=== PATIENT | female | born 1960 | race Caucasian/White ===

== ENCOUNTER → 2017-03-03 | Outpatient (CLI) | payer BC ==
[~2017-03-03] MED LIST: ATOR10TA PO; IOHEXOL 300 MG/ML 100ML VIAL. IV ONE; LORA0.5T96 PO; OLME20TA19 PO; PARO10TA57 PO; PRED1TAB3 PO; SOY1TABL2 PO
--- NOTE | 2017-03-03 12:51 | KCIC ---
CT ABDOMEN PELVIS WO/W dated 03/03/2017 11:00 AM Indication: Bladder cancer Comparison: None available. Technique: Pre and postcontrast imaging was performed of the[abdomen and pelvis as per the urogram protocol], multiplanar reconstruction images submitted. One or more of the following individualized dose reduction techniques were utilized for this examination: 1. Automated exposure control 2. Adjustment of the mA and/or kV according to patient size 3. Use of iterative reconstruction technique Contrast: 95 cc Omnipaque 300 Findings: There is some motion degradation. There are no renal or ureteral calculi, no hydronephrosis. Both kidneys enhance. The ureters are not dilated. No filling defect is identified of the opacified ureters or renal collecting systems. The entirety of the urinary bladder is not opacified with contrast on delayed images, no filling defects identified of the posterior one half of the urinary bladder. No significant lymphadenopathy is identified. There is no significant abnormality of the limited visualized lung bases. There is no adrenal nodularity. No focal abnormality is identified of the liver, spleen, pancreas, gallbladder, adrenal glands. Accurate evaluation of the bowel is limited without oral contrast. There is no significant bowel dilatation, free air, free fluid. Gallbladder is present without obvious intraluminal abnormality by CT. There is degenerative disc disease and spondylosis at L5-S1, mild narrowing of the right neural foramen at this level. IMPRESSION: 1. There is no significant lymphadenopathy, no filling defect identified of the renal collecting systems or ureters. Accurate evaluation for bladder mass is limited by CT, no obvious mass of the posterior one half of the urinary bladder. Electronically signed by: Adán Hauser MD (03/03/2017 12:47 PM)
== END | disposition home or self-care (01) ==
LOC: KCIC CT 10:17
PROVIDERS: ATTEND Urology
DX: C67.9 Malignant neoplasm of bladder, unspecified (principal)
CPT/HCPCS: 74178; Q9967

== ENCOUNTER → 2017-11-24 | Outpatient (CLI) | payer BC | END | disposition home or self-care (01) | LOC: KCIC MAMMO 12:05 | DX: Z12.31 Encounter for screening mammogram for malignant neoplasm of breast (principal) | CPT/HCPCS: 77067 ==

== ENCOUNTER → 2018-11-27 | Outpatient (CLI) | payer BC ==
[~2018-11-27] MED LIST changes: -IOHEXOL 300 MG/ML 100ML VIAL. IV ONE; +OLME20TA17 PO; -OLME20TA19 PO
--- NOTE | 2018-11-27 17:54 | KCIC ---
Bilateral digital screening mammograms with 3-D tomosynthesis: Reason for examination: Routine screening. Comparison is made to previous studies dated 11/24/2017 and 01/01/2015. Bilateral mammograms in CC and oblique projections were obtained with 2-D imaging and 3-D tomosynthesis imaging on a [employer] Inspiration unit and reviewed on the workstation. Interpretation was made with the benefit of CAD. The skin and nipples show no abnormalities. No abnormal axillary lymph nodes are seen. The breast parenchyma is predominantly fatty. (Breast density: Category A.) There are no dominant masses, suspicious calcifications or architectural distortion. Impression: No evidence of malignancy. Recommend routine screening. BI-RAD Category 1: Negative. "Our facility is accredited by the [employer] Mammography Program." This patient's information has been entered into a reminder system for the patient to be notified with the results of her examination and a target date for the next mammogram. Electronically signed by: Samaria Caldwell MD (11/27/2018 5:51 PM) [id number]
== END | disposition home or self-care (01) ==
LOC: KCIC MAMMO 14:31
PROVIDERS: ATTEND Nurse Practitioner Family
DX: Z12.31 Encounter for screening mammogram for malignant neoplasm of breast (principal)
CPT/HCPCS: 77063; 77067

== ENCOUNTER → 2020-07-01 | Outpatient (CLI) | payer BC ==
--- NOTE | 2020-07-01 13:45 | KCIC ---
Bone mineral density exam History: Hysterectomy Comparison: None Findings: Bone mineral density examination utilizing DEXA was performed. Left hip bone mineral density of 1.127 g/cm2 corresponds with a T score 1.5, Z score 2.5 The bone mineral density of the lumbar spine was 1.318 g/cm2 which corresponds with a T-score of 2.5, Z score 3.9 By World Congress on Osteoporosis criteria, a T score of 0 to-1 SD is considered to be within normal limits. A T score of -1 to -2.5 SD is considered osteopenia. A T score less than -2.5 SD is considered osteoporosis Impression: 1. There is normal bone density of the lumbar spine and the left hip. Electronically signed by: Adán Hauser MD (07/01/2020 1:42 PM) [id number]
--- NOTE | 2020-07-01 14:59 | KCIC ---
Bilateral digital screening mammograms with 3-D tomosynthesis: Reason for examination: Routine screening. Comparison is made to previous studies dated back to 01/01/2015. Bilateral mammograms in CC and oblique projections were obtained with 2-D imaging and 3-D tomosynthesis imaging on a [employer] Inspiration unit and reviewed on the workstation. Interpretation was made with the benefit of CAD. The skin and nipples show no abnormalities. No abnormal axillary lymph nodes are seen. The breast parenchyma shows scattered fatty and fibroglandular density. (Breast density: Category B.) There continues to be small subtle nodular parenchymal density at the anterior 11:00 position of the right breast which is stable. There are no new dominant masses, suspicious calcifications or architectural distortion. Impression: No evidence of malignancy. Recommend routine screening. BI-RAD Category 2: Benign. "Our facility is accredited by the [employer] Mammography [employer]." This patient's information has been entered into a reminder system for the patient to be notified with the results of her examination and a target date for the next mammogram. Electronically signed by: Samaria Caldwell MD (07/01/2020 2:55 PM) [id number]
== END ==
LOC: KCIC DEXA 12:28
PROVIDERS: ATTEND Family Medicine
DX: Z12.31 Encounter for screening mammogram for malignant neoplasm of breast (principal); N64.89 Other specified disorders of breast; Z78.0 Asymptomatic menopausal state; Z79.899 Other long term (current) drug therapy
CPT/HCPCS: 77063; 77067; 77080